=== PATIENT | male | born 1945 | race Caucasian/White ===

== ENCOUNTER → 2017-01-03 | Outpatient (CLI) | payer OTHER ==
[~2017-01-03] VITALS: Ht 175.3 cm; Wt 90.7 kg
[~2017-01-03] MED LIST: ASPIR 8181 M1 PO; ASPIRIN325 MG PO; CALCIUM/VITAMIN D3 PO; CINNAMON500 MG PO; COLACE100 MG PO; COQ-10100 MG PO; CRESTOR10 MG PO; CRESTOR20 MG; DIGITEK125 MC2 PO; ELIQUIS5 MG PO; LIDOCAINE15 GM TP; LOVAZA1 GM; LOVAZA1 GM PO; NEXIUM 24HR20 M1 PO; NEXIUM20 MG; PERCOCET 5/31 TABLET PO; VASOTEC2.5 MG PO; VITAMIN C PO
[2017-01-03 11:15] LABS: MCV 95.9 FL (86-99)
[2017-01-03 11:37] LABS: ANION GAP 8 MEQ/L (2-14); CHLORIDE 106 MEQ/L (99-109); GFR ESTIMATE (CALCULATED) > 59 mL/min/; GLUCOSE 83 mg/dL (70-99); POTASSIUM 4.3 MEQ/L (3.7-5.4); SAMPLE HEMOLYSIS CHECK 0; SAMPLE ICTERIC CHECK 0; SAMPLE LIPEMIA CHECK 0; SODIUM 140 MEQ/L (136-147); UREA NITROGEN (BUN) 11 mg/dL (9-23)
== END | disposition home or self-care (01) ==
LOC: AMB 10:04
PROVIDERS: Internal Medicine
PROC: 0DBL8ZX Excision of Transverse Colon, Via Natural or Artificial Opening Endoscopic, Diagnostic (ICD-10-PCS; principal; 2017-01-03)
DX: Z12.11 Encounter for screening for malignant neoplasm of colon (principal); D12.3 Benign neoplasm of transverse colon; K64.8 Other hemorrhoids; K62.89 Other specified diseases of anus and rectum; I25.10 Atherosclerotic heart disease of native coronary artery without angina pectoris; Z95.5 Presence of coronary angioplasty implant and graft; I25.2 Old myocardial infarction; G47.30 Sleep apnea, unspecified; Z79.82 Long term (current) use of aspirin; Z88.0 Allergy status to penicillin
CPT/HCPCS: 80048; 85014; 85018; 88305; 93005